=== PATIENT | female | born 1985 | race American Indian/Alaskan Native ===

== ENCOUNTER 2018-08-28 12:25 | Emergency (ER) | payer SELFPAY ==
[2018-08-28 12:50] VITALS: BP 134/65
--- NOTE | 2018-08-28 12:51 | Event Note ---
ED Screening Note Date of service: 08/28/18 Time: 12:47 ED Screening Note: This is a 33 y.o. F. that presents with headache and congestion. Patient reports headache started this morning upon awaking. Global headache. She took Tylenol this morning with no improvement of symptoms. Reports a history of migraines. The last one was years ago. Current smoker 1/2 ppd. Reports visual changes. This initial assessment/diagnostic orders/clinical plan/treatment(s) is/are subject to change based on patients health status, clinical progression and re- assessment by fellow clinical providers in the ED. Further treatment and workup at subsequent clinical providers discretion. Patient/guardian urged not to elope from the ED as their condition may be serious if not clinically assessed and managed. Initial orders include: ACC for further evaluation.
[2018-08-28] MEDS ORDERED: ZOFRAN ODT PO ONE (13:36)
[2018-08-28] MEDS ORDERED: FIORICET PO ONE (13:37)
--- NOTE | 2018-08-28 13:42 | Emergency Department Report ---
HPI - General Chief Complaint: Headache Time Seen by Provider: 08/28/18 12:47 - HPI HPI: 33-year-old -[place] female presents to the emergency department with a complaint of a headache upon waking this morning. She calls it a migraine and says that she has a history of migraine headaches and has not had one in about one year. She complains of some nausea with one episode of vomiting, sensitivity to light, and sensitivity to sounds. She denies any slurred speech, numbness or paresthesias, fever. She tried some Tylenol for her symptoms without much relief. No recent travel or sick contacts at home. ED Past Medical Hx - Social History Smoking Status: Current Every Day Smoker Substance Use Type: Prescribed ED Review of Systems ROS: Stated complaint: HEADACHE Other details as noted in HPI Comment: All other systems reviewed and negative Constitutional: denies: chills, fever Eyes: other (photophobia). denies: eye pain ENT: denies: ear pain, throat pain Respiratory: denies: cough, shortness of breath Cardiovascular: denies: chest pain, palpitations Gastrointestinal: nausea, vomiting. denies: abdominal pain Genitourinary: denies: dysuria, discharge Musculoskeletal: denies: back pain, arthralgia Skin: denies: rash, lesions Neurological: headache. denies: weakness Physical Exam - Physical Exam Vital Signs: Vital Signs 08/28/18 12:47 Temperature 97.4 F L Pulse Rate 51 L Respiratory 18 Rate Blood Pressure 134/65 O2 Sat by Pulse 100 Oximetry Physical Exam: GENERAL: The patient is well-developed well-nourished. HENT: Normocephalic. Atraumatic. Patient has moist mucous membranes. EYES: Extraocular motions are intact. Pupils equal reactive to light bilaterally. No nystagmus. Mild photophobia. NECK: Supple. Trachea is midline. CHEST/LUNGS: Clear to auscultation. There is no respiratory distress noted. HEART/CARDIOVASCULAR: Regular. There is no tachycardia. There is no murmur. ABDOMEN: There is no abdominal distention. SKIN: Skin is warm and dry. NEURO: The patient is awake, alert, and oriented. The patient is cooperative. The patient has no focal neurologic deficits. The patient has normal speech. Cranial nerves II through XII grossly intact. MUSCULOSKELETAL: There is no tenderness or deformity. There is no limitation range of motion. There is no evidence of acute injury. ED Course Vital Signs 08/28/18 12:47 Temperature 97.4 F L Pulse Rate 51 L Respiratory 18 Rate Blood Pressure 134/65 O2 Sat by Pulse 100 Oximetry ED Medical Decision Making - Radiology Data Radiology results: report reviewed CT HEAD WITHOUT CONTRAST INDICATION / CLINICAL INFORMATION: Severe headache and photophobia. Migraine headache. TECHNIQUE: All CT scans at this location are performed using CT dose reduction for ALARA by means of automated exposure control. COMPARISON: None available. FINDINGS: HEMORRHAGE: No evidence of intracranial hemorrhage or extra-axial fluid collection. EXTRA-AXIAL SPACES: Cortical sulci, sylvian fissures and basilar cisterns have an unremarkable appearance. VENTRICULAR SYSTEM: The ventricular system is of normal size and configuration. CEREBRAL PARENCHYMA: No areas of abnormal brain parenchymal attenuation are identified. There is no indication of recent infarction. MIDLINE SHIFT OR HERNIATION: There is no mass effect. CEREBELLUM / BRAINSTEM: Brainstem and cerebellum have an unremarkable appearance. INTRACRANIAL VESSELS:No abnormalities are identified on this noncontrast head CT. ORBITS: visualized portions of the orbits have an unremarkable appearance. SOFT TISSUES of HEAD: No significant abnormality. CALVARIUM: Evaluation of bone windows reveals no abnormalities. PARANASAL SINUSES / MASTOID AIR CELLS: Maxillary sinuses were largely excluded from this examination. Paranasal sinuses are otherwise free from inflammatory mucosal disease. Mastoid air cells are normally pneumatized. IMPRESSION: Normal head CT without contrast. - Medical Decision Making This patient presents to the emergency department with complaint of a headache going from the middle of her forehead straight back to the occiput. On examination she does not have any focal, motor or sensory deficits in her cranial nerves are intact. She has a history of migraine headaches but has not had one in about one year. She has some photophobia and sound sensitivity. She had a CT scan of the head that did not show any bleed, shift, mass, ischemia, or any other acute process. She was given some Zofran ODT which helped resolve her nausea. The Fioricet given did not help her symptoms at first but then the patient was given some IV fluid, Toradol and morphine. She was reevaluated multiple times over a few hours and is feeling greatly improved. The headache is down to about a 1 out of 10 and the photosensitivity and sound sensitivity have resolved. Patient was seen ambulatory prior to discharge and both appears and feels stable. She has been discharged with a referral for primary care and neurology. She will return to the emergency Department with any worsening of her symptoms or any acute distress. - Differential Diagnosis tension headache, migraine headache, subarachnoid Critical Care Time: No Critical care attestation.: If time is entered above; I have spent that time in minutes in the direct care of this critically ill patient, excluding procedure time. ED Disposition Clinical Impression: Migraine headache Qualifiers: Migraine type: unspecified Status migrainosus presence: without status migrainosus Intractability: not intractable Qualified Code(s): G43.909 - Migraine, unspecified, not intractable, without status migrainosus Disposition: TO HOME OR SELFCARE Is pt being admited?: No Condition: Stable Instructions: Migraine Headache (ED), Acute Headache (ED) Additional Instructions: Please follow up with a primary care physician in the next few days. I have also given you a referral for 2 different neurologists, Dr. Merlos and Dr. Don, to follow up regarding your headaches. Return to the emergency Department with any worsening of your symptoms or any acute distress. Referrals: [facility] [Outside] - 3-5 Days OSIEL MERLOS MD [Staff Physician] - 3-5 Days SERVANDO DON MD [Staff Physician] - 3-5 Days Time of Disposition: 16:08
--- NOTE | 2018-08-28 14:27 | Cat Scan Report ---
CT HEAD WITHOUT CONTRAST INDICATION / CLINICAL INFORMATION: Severe headache and photophobia. Migraine headache. TECHNIQUE: All CT scans at this location are performed using CT dose reduction for ALARA by means of automated e xposure control. COMPARISON: None available. FINDINGS: HEMORRHAGE: No evidence of intracranial hemorrhage or extra-axial fluid collection. EXTRA-AXIAL SPACES: Cortical sulci, sylvian fissures and basilar cisterns have an unremarkable appear ance. VENTRICULAR SYSTEM: The ventricular system is of normal size and configuration. CEREBRAL PARENCHYMA: No areas of abnormal brain parenchymal attenuation are identified. There is no i ndication of recent infarction. MIDLINE SHIFT OR HERNIATION: There is no mass effect. CEREBELLUM / BRAINSTEM: Brainstem and cerebellum have an unremarkable appearance. INTRACRANIAL VESSELS:No abnormalities are identified on this noncontrast head CT. ORBITS: visualized portions of the orbits have an unremarkable appearance. SOFT TISSUES of HEAD: No significant abnormality. CALVARIUM: Evaluation of bone windows reveals no abnormalities. PARANASAL SINUSES / MASTOID AIR CELLS: Maxillary sinuses were largely excluded from this examination. Paranasal sinuses are otherwise free from inflammatory mucosal disease. Mastoid air cells are normal ly pneumatized. IMPRESSION: Normal head CT without contrast. Signer Name: Harmeet Caldwell MD Signed: 08/28/2018 2:22 PM Workstation Name: [id number]
[2018-08-28] MEDS ORDERED: NACL 0.9% 1000 ML 1,000 ML IV ONE (14:52)
[2018-08-28] MEDS ORDERED: MORPHINE IV ONE (14:52)
[2018-08-28] MEDS ORDERED: TORADOL IV ONE (14:52)
== END 2018-08-28 16:27 | disposition home or self-care (01) ==
LOC: ED 12:25
DX: G43.909 Migraine, unspecified, not intractable, without status migrainosus (principal); F17.200 Nicotine dependence, unspecified, uncomplicated
CPT/HCPCS: 70450; 96361; 96374; 96375; 99283; J1885; J2270; J7030; Q0162